=== PATIENT | female | born 1955 | race Asian ===

== ENCOUNTER 2025-10-22 23:26 | Inpatient (IN) | payer MEDICARE, OTHER ==
[~2025-10-22] VITALS: Ht 157.5 cm; Wt 91.0 kg
[2025-10-22 23:56] LABS: Hematocrit 37.2 % (36.0-46.0); Hemoglobin 12.6 g/dL (12.2-16.2); Mean Corpuscular Hemoglobin 33.2 pg (28.0-32.0); Mean Corpuscular Volume 98.0 fL (80.0-100.0); Nucleated Red Blood Cells % 0.0 %
[2025-10-23] VITALS (7 sets, daily range): BP systolic 149–162; BP diastolic 61–77; PULSE 59–71; RESP 17–20; TEMP 97.2–98.9; O2SAT 93–100
[2025-10-23 00:15] LABS: Alanine Aminotransferase 27 U/L (7-40); Albumin 4.2 g/dL (3.2-4.8); Anion Gap 10 (5-15); BUN/Creatinine Ratio 4.4 (10.0-20.0); Bilirubin, Total 0.3 mg/dL (0.2-1.0); Blood Urea Nitrogen 20 mg/dL (9-23); Calcium 9.6 mg/dL (8.7-10.4); Potassium 4.1 mmol/L (3.5-5.1)
[2025-10-23 00:19] LABS: Alkaline Phosphatase 150 U/L (46-116); Carbon Dioxide 32 mmol/L (20-31); Chloride 90 mmol/L (98-107); Glucose 191 mg/dL (74-106); Sodium 132 mmol/L (136-145); Total Protein 8.5 g/dL (5.7-8.2)
--- NOTE | 2025-10-23 00:37 | DVH ---
CHEST RADIOGRAPH Indication: GEN WEAK Technique: Single frontal view of the chest was obtained COMPARISON: None FINDINGS: Lines and Tubes: None Lungs: Clear Pleura: No effusion. No pneumothorax. Cardiomediastinal contours: Cardiomegaly. Bones: Unremarkable IMPRESSION: 1. Cardiomegaly.
--- NOTE | 2025-10-23 01:19 | ED.PDOC ---
History of Present Illness HPI Comments 70-year-old female brought in by EMS. Patient was complaining of generalized weakness which started today. Got worse after having dialysis. Patient states they took 2-3 L fluid off of her after dialysis. States she gets dialysis Tuesdays and Saturdays. Patient states he has been having some mild congestion and cough over the last few days. No fever. Nothing makes it better, nothing makes it worse. Patient denies any chest pain. Chief Complaint: General Weakness Time Seen by MD: 23:35 Reviewed Notes: Nurses Notes Information Source: Patient Mode of Arrival: EMS Past Medical History PAST MEDICAL HISTORY: Denies Surgical History: Denies all surgeries ACUTE CARE PHYSICIAN History: No Pertinent ACUTE CARE PHYSICIAN History Constitutional: reports: fatigue, weakness; denies: chills, diaphoresis, fever, malaise, sweats, others EENTM: denies: blurred vision, double vision, ear bleeding, ear discharge, ear drainage, ear pain, ear ringing, eye pain, eye redness, hearing loss, mouth pain, mouth swelling, nasal discharge, nose bleeding, nose congestion, nose pain, photophobia, tearing, throat pain, throat swelling, voice changes, others Respiratory: reports: cough; denies: hemoptysis, orthopnea, SOB at rest, shortness of breath, SOB with excertion, stridor, wheezing, others Cardiovascular: denies: chest pain, dizzy spells, diaphoresis, Dyspnea on exertion, edema, irregular heart beat, left arm pain, lightheadedness, palpitations, PND, syncope, others Gastrointestinal: denies: abdomen distended, abdominal pain, blood streaked bowels, constipated, diarrhea, dysphagia, difficulty swallowing, hematemesis, melena, nausea, poor appetite, poor fluid intake, rectal bleeding, rectal pain, vomiting, others Genitourinary: denies: abnormal vagina bleeding, burning, dyspareunia, dysuria, flank pain, frequency, hematuria, incontinence, pain, , vagina discharge, urgency, others Neurological: denies: dizziness, fainting, headache, left sided numbness, left sided weakness, numbness, paresthesia, pre-existing deficit, right sided numbness, right sided weakness, seizure, speech problems, tingling, tremors, weakness, others Musculoskeletal: denies: back pain, gout, joint pain, joint swelling, muscle pain, muscle stiffness, neck pain, others Integumetry: denies: bruises, change in color, change in hair/nails, dryness, laceration, lesions, lumps, rash, wounds, others Allergic/Immunocompromised: denies: Difficulty Healing, Frequent Infections, Hives, Itching, others Hematologic/Lymphatic: denies: anemia, blood clots, easy bleeding, easy bruising, swollen glands, others Physical Exam General Appearance: No Apparent Distress, Normal HEENT: Normal ENT Inspection, Pharynx Normal, TMs Normal Neck: Full Range of Motion, Non-Tender, Normal, Normal Inspection Respiratory: Chest Non-Tender, Lungs Clear, No Accessory Muscle Use, No Respiratory Distress, Normal Breath Sounds Cardiovascular: No Edema, No JVD, No Murmur, No Gallop, Normal Peripheral Pulses, Regular Rate/Rhythm Breast Exam: Deferred Gastrointestinal: No Organomegaly, Non Tender, No Pulsatile Mass, Normal Bowel Sounds, Soft Genitalia: Deferred Pelvic: Deferred Rectal: Deferred Extremities: No calf tenderness, Normal capillary refill, Normal inspection, Normal range of motion, Non-tender, No pedal edema Musculoskeletal : Apperance: Normal Neurologic: Alert, belly dancer II-XII nml as Tested, No Motor Deficits, Normal Affect, Normal Mood, No Sensory Deficits Cerebellar Function: Normal Reflexes: Normal Skin: Dry, Normal Color, Warm Lymphatic: No Adenopathy Was a procedure done? Was a procedure done?: No Differential Dx Considerations may include: Pneumonia, sepsis, dehydration, electrolyte imbalance, X-Ray, Labs, Meds, VS Vital Signs Date Time Temp Pulse Resp B/P (MAP) Pulse Ox O2 Delivery O2 Flow Rate FiO2 10/23/25 00:17 98.6 59 18 142/48 (79) 97 98.6 10/23/25 00:17 59 97 Room Air* 0 21 10/22/25 23:43 98.8 62 16 179/73 96 98.8 Lab Test 10/23/25 00:53 10/22/25 23:46 Range/Units Troponin I High Sensitivity Pending 43 *H </=34 ng/L White Blood Count 6.3 4.4-10.8 10^3/uL Red Blood Count 3.80 L 4.0-5.20 10^6/uL Hemoglobin 12.6 12.2-16.2 g/dL Hematocrit 37.2 36.0-46.0 % Mean Corpuscular Volume 98.0 80.0-100.0 fL Mean Corpuscular Hemoglobin 33.2 H 28.0-32.0 pg Mean Corpuscular Hemoglobin Concent 33.9 32.0-36.0 g/dL Red Cell Distribution Width 14.1 11.8-14.3 % Platelet Count 318 140-450 10^3/uL Mean Platelet Volume 7.1 6.9-10.8 fL Neutrophils (%) (Auto) 62.2 37.0-80.0 % Lymphocytes (%) (Auto) 21.7 10.0-50.0 % Monocytes (%) (Auto) 10.7 0.0-12.0 % Eosinophils (%) (Auto) 4.4 0.0-7.0 % Basophils (%) (Auto) 1.0 0.0-2.0 % Neutrophils # (Auto) 3.9 1.6-8.6 10 ^3/uL Lymphocytes # (Auto) 1.4 0.4-5.4 10 ^3/uL Monocytes # (Auto) 0.7 0-1.3 10 ^3/uL Eosinophils # (Auto) 0.3 0-0.8 10 ^3/uL Basophils # (Auto) 0.1 0-0.2 10 ^3/uL Nucleated Red Blood Cells 0.0 % Sodium Level 132 L 136-145 mmol/L Potassium Level 4.1 3.5-5.1 mmol/L Chloride Level 90 L 98-107 mmol/L Carbon Dioxide Level 32 H 20-31 mmol/L Anion Gap 10 5-15 Blood Urea Nitrogen 20 9-23 mg/dL Creatinine 4.52 H 0.550-1.02 mg/dL Glomerular Filtration Rate Calc 10 >90 mL/min BUN/Creatinine Ratio 4.4 L 10.0-20.0 Serum Glucose 191 H 74-106 mg/dL Lactic Acid Level 1.7 0.4-2.0 mmol/L Calcium Level 9.6 8.7-10.4 mg/dL Total Bilirubin 0.3 0.2-1.0 mg/dL Aspartate Amino Transferase (AST) 25 13-40 U/L Alanine Aminotransferase (ALT) 27 7-40 U/L Alkaline Phosphatase 150 H 46-116 U/L Ammonia 21 11-32 umol/L Total Protein 8.5 H 5.7-8.2 g/dL Albumin 4.2 3.2-4.8 g/dL X-Ray, Labs, Meds, VS Comment Patient has a elevated troponin, hyponatremia Patient be admitted for metabolic encephalopathy, generalized weakness, acute coronary syndrome, Patient hemodynamically stable Recommend cardiology consult in the morning Previous records reviewed by this provider Time of 1ST Reevaluation: 01:17 Reevaluation 1ST: Unchanged Patient Education/Counseling: Diagnosis, Treatment Family Education/Counseling: Diagnosis, Treatment SEPSIS Sepsis Screen Date sepsis recognized/suspect: Oct 22, 2025 Time Sepsis recognized/suspect: 2339 Recent Procedure: No On Antibiotic Therapy: No Respiratory Rate >20: No Heart Rate >90: No Temp<36 C (96.8 F) or >38.3 C: No SBP <90 or MAP <65 mmHG: No New Acute Mental Status Change: No Is the patient on CPAP, BIPAP,: No Physician Orders Chest Xray 1 View (10/22/25 23:38) Troponin-I Hs (10/23/25 00:38) Troponin-I Hs (10/23/25 02:38) Vital Signs Date Time Temp Pulse Resp B/P (MAP) Pulse Ox O2 Delivery O2 Flow Rate FiO2 10/23/25 00:17 98.6 59 18 142/48 (79) 97 98.6 10/23/25 00:17 59 97 Room Air* 0 21 10/22/25 23:43 98.8 62 16 179/73 96 98.8 Laboratory Tests Test 10/22/25 23:46 Lactic Acid Level 1.7 mmol/L (0.4-2.0) White Blood Count 6.3 10^3/uL (4.4-10.8) Departure 1 Departure Time of Disposition: 01:14 Impression: Primary Impression: End stage renal disease Additional Impressions: Elevated troponin ACS (acute coronary syndrome) Metabolic encephalopathy Disposition: ADMITTED INPATIENT Condition: Stable Critical Care Note Critical Care Time?: No Stability Stability form required: No Heart Score Heart Score: Heart Score Response (Comments) Value History N/A 0 EKG N/A 0 Age N/A 0 Risk Factors N/A 0 Troponin N/A 0 Total 0 RAJAN WALDROP Oct 23, 2025 01:19
[2025-10-23] MEDS ORDERED: ONDANSETRON HCL 4 MG/2 ML VIAL IV PRN (02:15)
[2025-10-23] MEDS ORDERED: HYDROcodone-ACET 5/325MG TAB PO PRN (02:15)
[2025-10-23] MEDS ORDERED: SODIUM CHLORIDE 0.9% 1,000 ML IV SCH (02:15)
[2025-10-23] MEDS ORDERED: ACETAMINOPHEN 325 MG TAB PO PRN (02:15)
[2025-10-23] MEDS ORDERED: DEXTROSE (50%) 50ML SYRG IV PRN (02:15)
[2025-10-23] MEDS ORDERED: DOCUSATE SOD 100 MG CAP PO PRN (02:15)
--- NOTE | 2025-10-23 02:22 | DVHHP2 ---
History of Present Illness Reason for Visit: End stage renal disease History of Present Illness The patient is a 70-year-old female with past medical history of diabetes mellitus, vascular disease, blood clot not on any anticoagulant, diabetes mellitus, and end-stage renal disease on hemodialysis, T--SAT presented to [facility] ED for evaluation of generalized weakness associated with shortness of breaths. Patient's son reports that patient had dialysis session today with 2-3 L of fluid output, symptoms gets worse after dialysis prompting this visit. Patient states he has been having some mild congestion and cough over the last few days, pending appointment with broke beater on November 06, 2025. Patient was seen and evaluated in the ED, laboratory data shows WBC 6.3, platelets 318, sodium 132, potassium 4.1, BUN 20, creatinine 4.52, GFR 10, glucose 191, hemoglobin A1c 6.4, calcium 9.6, ammonia 21, lactic acid 1.7, troponin 46, blood pressure 142/58, heart rate 59, temperature 98.6 F, O2 saturation 97% on oxygen. Chest x-ray revealing cardiomegaly. Please see medica tion orders section in the computer. On my assessment, at bedside, patient denied chest pain, no headache, dizziness, diaphoresis, currently on oxygen, no abdominal pain, diarrhea, nausea, vomiting, fever, no chills. Patient was admitted for further evaluation and medical management. Past Medical History Blood clot, Vascular disease, ESRD, DM, Hypertension Past Surgical History Dialysis catheter Family History Reviewed, noncontributory to the management of this case. Past Social History The patient lives at home, denies smoking, alcohol or illicit drugs abuse. Review of Systems Constitutional: Yes: Weakness, Other (Fatigue); No: Fever, Chills, Sweats, Malaise Eyes: No: Pain, Vision change, Conjunctivae inflammation, Eyelid inflammation, Other, Redness ENT: No: Ear pain, Ear discharge, Nose pain, Nose discharge, Nose congestion, Mouth pain, Mouth swelling, Throat pain, Throat swelling, Other Respiratory: Cough, Shortness of breath; No: Dry, SOB with excertion, Wheezing, Hemoptysis, Pleuritic Pain, Sputum, Wheezing, Other Cardiovascular: No: Chest Pain, Palpitations, Orthopnea, Paroxysmal Noc. Dyspnea, Edema, Lt Headedness, Other Gastrointestinal: No: Nausea, Vomiting, Abdominal Pain, Diarrhea, Constipation, Melena, Hematochezia, Other Genitourinary: No Dysuria, No Frequency, No Incontinence, No Hematuria, No Retention, No Other Musculoskeletal: No: other, neck pain, shoulder pain, arm pain, back pain, hand pain, leg pain, foot pain Skin: No: Rash, Lesions, Jaundice, Bruising, Other Neurological: No: Weakness, Numbness, Incoordination, Change in speech, Confusion, Seizures, Other Allergies: Coded Allergies: NO KNOWN ALLERGIES (Unverified , 10/23/25) Medications Current Medications Medications Dose Ordered Sig/Michelle Route Start Time Stop Time Status Last Admin Dose Admin Multivit/Ca Carb/ B Cmplx/FA/Prenat 1 tab DAILY PO 10/23/25 10:00 UNV Diagnostic Test (Pha) 1 strip ACHS 10/23/25 07:00 UNV Insulin Human Regular HS SC 10/23/25 22:00 UNV Insulin Human Regular AC SC 10/23/25 07:00 UNV Dextrose 50 ml UD PRN IV 10/23/25 02:15 UNV Sodium Chloride 1,000 ml @ 60 mls/hr [id number] IV 10/23/25 02:15 UNV Acetaminophen/ Hydrocodone Bitart 1 tab Q4HP PRN PO 10/23/25 02:15 UNV Ondansetron HCl 4 mg Q4HP PRN IV 10/23/25 02:15 UNV Docusate Sodium 100 mg BIDPRN PRN PO 10/23/25 02:15 UNV Acetaminophen 650 mg Q6HP PRN PO 10/23/25 02:15 UNV Aspirin 81 mg DAILY PO 10/23/25 10:00 UNV Exam Vital Signs Vital Signs Date Time Temp Pulse Resp B/P (MAP) Pulse Ox O2 Delivery O2 Flow Rate FiO2 10/23/25 02:13 65 13 141/39 (73) 99 10/23/25 00:17 98.6 98.6 10/23/25 00:17 Room Air* 0 21 General Appearance: Alert, Oriented X3, Cooperative, No acute distress HEENT: Atraumatic, PERRLA, EOMI, Mucous membr. moist/pink Respiratory: Normal air movement Cardiovascular: Regular rate, Normal S1, Normal S2, No murmurs Abdominal: Normal bowel sounds, Soft, No tenderness, No hepatospenomegaly, No masses Extremities: No clubbing, No cyanosis, No edema, Normal pulses, No tenderness/swelling Skin: No rashes, No significant lesion Neuro: Normal speech, Normal tone, Sensation intact, Cranial nerves 3-12 NL, Reflexes 2+, Other (Generalized weakness) Psych/Mental Status: Mental status NL, Mood NL Labs/Xrays Labs Test 10/23/25 00:53 10/22/25 23:46 Range/Units Troponin I High Sensitivity 46 *H </=34 ng/L White Blood Count 6.3 4.4-10.8 10^3/uL Red Blood Count 3.80 L 4.0-5.20 10^6/uL Hemoglobin 12.6 12.2-16.2 g/dL Hematocrit 37.2 36.0-46.0 % Mean Corpuscular Volume 98.0 80.0-100.0 fL Mean Corpuscular Hemoglobin 33.2 H 28.0-32.0 pg Mean Corpuscular Hemoglobin Concent 33.9 32.0-36.0 g/dL Red Cell Distribution Width 14.1 11.8-14.3 % Platelet Count 318 140-450 10^3/uL Mean Platelet Volume 7.1 6.9-10.8 fL Neutrophils (%) (Auto) 62.2 37.0-80.0 % Lymphocytes (%) (Auto) 21.7 10.0-50.0 % Monocytes (%) (Auto) 10.7 0.0-12.0 % Eosinophils (%) (Auto) 4.4 0.0-7.0 % Basophils (%) (Auto) 1.0 0.0-2.0 % Neutrophils # (Auto) 3.9 1.6-8.6 10 ^3/uL Lymphocytes # (Auto) 1.4 0.4-5.4 10 ^3/uL Monocytes # (Auto) 0.7 0-1.3 10 ^3/uL Eosinophils # (Auto) 0.3 0-0.8 10 ^3/uL Basophils # (Auto) 0.1 0-0.2 10 ^3/uL Nucleated Red Blood Cells 0.0 % Sodium Level 132 L 136-145 mmol/L Potassium Level 4.1 3.5-5.1 mmol/L Chloride Level 90 L 98-107 mmol/L Carbon Dioxide Level 32 H 20-31 mmol/L Anion Gap 10 5-15 Blood Urea Nitrogen 20 9-23 mg/dL Creatinine 4.52 H 0.550-1.02 mg/dL Glomerular Filtration Rate Calc 10 >90 mL/min BUN/Creatinine Ratio 4.4 L 10.0-20.0 Serum Glucose 191 H 74-106 mg/dL Lactic Acid Level 1.7 0.4-2.0 mmol/L Calcium Level 9.6 8.7-10.4 mg/dL Total Bilirubin 0.3 0.2-1.0 mg/dL Aspartate Amino Transferase (AST) 25 13-40 U/L Alanine Aminotransferase (ALT) 27 7-40 U/L Alkaline Phosphatase 150 H 46-116 U/L Ammonia 21 11-32 umol/L Total Protein 8.5 H 5.7-8.2 g/dL Albumin 4.2 3.2-4.8 g/dL PATIENT: OPAL HOOVER ACCT: [id number] UNIT: [id number] : 1955 LOC: ER ROOM / BED: / AGE / SEX: 70 / F ADM STATUS: REG ER SERVICE 2338 ORDERING PHYSICIAN: RAJAN WALDROP PROCEDURE(s): CXR1 - CHEST XRAY 1 VIEW REASON: GEN WEAK ORDER NUMBER(s): [id number], ACCESSION NUMBER(s): [id number] CHEST RADIOGRAPH Indication: GEN WHALEY Technique: Single frontal view of the chest was obtained COMPARISON: None FINDINGS: Lines and Tubes: None Lungs: Clear Pleura: No effusion. No pneumothorax. Cardiomediastinal contours: Cardiomegaly. Bones: Unremarkable IMPRESSION: 1. Cardiomegaly. SEPSIS Sepsis Screen Date sepsis recognized/suspect: Oct 23, 2025 Time Sepsis recognized/suspect: 219 Recent Procedure: No On Antibiotic Therapy: No Respiratory Rate >20: No Heart Rate >90: No Temp<36 C (96.8 F) or >38.3 C: No SBP <90 or MAP <65 mmHG: No New Acute Mental Status Change: No Is the patient on CPAP, BIPAP,: No Physician Orders Chest Xray 1 View (10/22/25 23:38) Troponin-I Hs (10/23/25 02:38) Electrocardigram (10/23/25 01:19) Complete Blood Count (10/23/25 04:00) Comprehensive Metabolic Panel (10/23/25 04:00) *[facility] (10/23/25 02:06) B-Complex W/ C & Folic Tablet (Nephro-Vi (10/23/25 10:00) Hemoglobin A1c (10/23/25 02:06) Glucose Blood (Accu-Chek Comfort Curve T (10/23/25 07:00) Insulin R (Human) (Insulin R) (10/23/25 22:00) Insulin R (Human) (Insulin R) (10/23/25 07:00) Dextrose 50% Syringe (10/23/25 02:15) Allergies (10/23/25 02:06) Code Status (10/23/25 02:06) Sodium Chloride 0.9% (10/23/25 02:15) Oxygen Per Hour (10/23/25 02:06) Hydrocodone-Acet 5/325mg Tab (Thomas (10/23/25 02:15) Ondansetron Hcl (Zofran) (10/23/25 02:15) Docusate Sodium Capsule (Colace Capsule) (10/23/25 02:15) Fall Risk Precautions In Place QSHIFT (10/23/25 02:06) Complete Blood Count (10/24/25 04:00) Comprehensive Metabolic Panel (10/24/25 04:00) Cardiac Diet-2gna,Lofat,Lochol (10/23/25 Breakfast) Condition: Serious (10/23/25 02:06) Acetaminophen Tablet (Tylenol Tablet) (10/23/25 02:15) Maintain Bed Rest (10/23/25 02:06) Sequential Compression Device (10/23/25 ) Aspirin Chewable Tablet (10/23/25 10:00) Aspirin Chewable Tablet (10/23/25 02:15) Troponin-I Hs (10/23/25 03:12) Troponin-I Hs (10/23/25 05:12) Vital Signs Date Time Temp Pulse Resp B/P (MAP) Pulse Ox O2 Delivery O2 Flow Rate FiO2 10/23/25 02:13 65 13 141/39 (73) 99 10/23/25 00:17 98.6 59 18 142/48 (79) 97 98.6 10/23/25 00:17 59 97 Room Air* 0 21 10/22/25 23:58 63 10/22/25 23:43 98.8 62 16 179/73 96 98.8 Laboratory Tests Test 10/22/25 23:46 Lactic Acid Level 1.7 mmol/L (0.4-2.0) White Blood Count 6.3 10^3/uL (4.4-10.8) Assessment/Plan Assessment/Plan End stage renal disease Elevated troponin ACS (acute coronary syndrome) Metabolic encephalopathy Generalized weakness Plan 1. Admit to telemetry unit 2. Breathing treatment 3. Pain control management 4. Management of fluids and electrolytes 5. Consultation for Nephrology/hospitalist 6. Diagnostic tests chest x-ray 7. DVT prophylaxis-on aspirin 8. Repeat labs CBC, CMP in a.m. 9. Continue with current medical management 10. Treatment plan discussed with patient/son and RN. Patient/son verbalized understanding. Plan discussed with: Patient, Other (RN) My Orders Orders - MANJEET GIRON DNP Procedure Category Date Status Time Complete Blood Count LAB 10/23/25 Logged 04:00 Comprehensive LAB 10/23/25 Logged Metabolic Panel 04:00 *[facility] CONS 10/23/25 Transmitted -[place] 02:06 B-Complex W/ C & PHA 10/23/25 Logged Folic Tablet 10:00 Hemoglobin A1c LAB 10/23/25 In Process 02:06 Glucose Blood PHA 10/23/25 Logged (Accu-Chek Comfort 07:00 Insulin R (Human) PHA 10/23/25 Logged (Insulin R) 22:00 Insulin R (Human) PHA 10/23/25 Logged (Insulin R) 07:00 Dextrose 50% Syringe PHA 10/23/25 Logged 02:15 Allergies JACQUELINE 10/23/25 In Process 02:06 Code Status CODE 10/23/25 Transmitted 02:06 Sodium Chloride 0.9% PHA 10/23/25 Logged 02:15 Oxygen Per Hour RT 10/23/25 Transmitted 02:06 Hydrocodone-Acet PHA 10/23/25 Logged 5/325mg Tab (Thomas 02:15 Ondansetron Hcl PHA 10/23/25 Logged (Zofran) 02:15 Docusate Sodium PHA 10/23/25 Logged Capsule (Colace 02:15 Fall Risk Precautions JACQUELINE 10/23/[address] 02:06 Complete Blood Count LAB 10/24/25 Verified 04:00 Comprehensive LAB 10/24/25 Verified Metabolic Panel 04:00 Cardiac DIET 10/23/25 Transmitted Diet-2gna,Lofat,Lochol Breakfast Condition: Serious JACQUELINE 10/23/25 In Process 02:06 Acetaminophen Tablet [facility] 10/23/25 Logged (Tylenol Tablet) 02:15 Maintain Bed Rest JACQUELINE 10/23/25 In Process 02:06 Sequential JACQUELINE 10/23/25 In Process Compression Device Aspirin Chewable PHA 10/23/25 Logged Tablet 10:00 Aspirin Chewable PHA 10/23/25 Logged Tablet 02:15 Troponin-I Hs LAB 10/23/25 Logged 03:12 Troponin-I Hs LAB 10/23/25 Logged 05:12 Problem List: (1) End stage renal disease (2) Elevated troponin (3) ACS (acute coronary syndrome) (4) Metabolic encephalopathy (5) Generalized weakness Date of Service: Oct 23, 2025 Billing Provider: MANJEET GIRON DNP Common Visit Codes: [id number] INP/OBS CARE (HIGH) MANJEET GIRON DNP Oct 23, 2025 02:22
[2025-10-23] MEDS ORDERED: MORPHINE SULFATE INJ 2 MG/ml SYRG IV PRN (02:30)
[2025-10-23] MEDS ORDERED: NITROGLYCERIN 0.4 MG SL TAB SL PRN (02:30)
[2025-10-23 04:08] LABS: Alanine Aminotransferase 19 U/L (7-40); Alkaline Phosphatase 112 U/L (46-116); Anion Gap 10 (5-15); BUN/Creatinine Ratio 4.0 (10.0-20.0); Bilirubin, Total 0.4 mg/dL (0.2-1.0); Blood Urea Nitrogen 16 mg/dL (9-23); Carbon Dioxide 27 mmol/L (20-31); Chloride 99 mmol/L (98-107); Potassium 3.5 mmol/L (3.5-5.1); Total Protein 6.4 g/dL (5.7-8.2)
[2025-10-23 04:10] LABS: Albumin 3.1 g/dL (3.2-4.8); Calcium 7.8 mg/dL (8.7-10.4); Glucose 113 mg/dL (74-106); Sodium 136 mmol/L (136-145)
[2025-10-23] MEDS: InsuLIN REG 1unit/0.01ml Soln (100units/ml) SC SCH ×2 (06:37→21:58)
[2025-10-23] MEDS: ACCU-CHEK COMFORT CURVE STRIP VI SCH (06:37)
[2025-10-23 06:39] LABS: Hematocrit 33.0 % (36.0-46.0); Hemoglobin 11.4 g/dL (12.2-16.2); Mean Corpuscular Hemoglobin 33.7 pg (28.0-32.0); Mean Corpuscular Volume 97.5 fL (80.0-100.0); Nucleated Red Blood Cells % 0.0 %
--- NOTE | 2025-10-23 10:09 | ECG ---
[facility] Test Date: 2025-10-22 Test Time: 23:58:47 Pat Name: OPAL HOOVER Department: ED Room: 0248T B Gender: F Dental Office Receptionist: HAYLEE : 1955 Requested By: RAJAN HARDEN* Order Number: [id number] Reading MD: Jarek Lowry Measurements Intervals [place] Rate: 63 P: 38 HI: 325 QRS: 81 QRSD: 90 T: 55 QT: 421 QTc: 431 Interpretive Statements Sinus rhythm, intermittant A-V block, complete Prolonged HI interval Anterior infarct, old Electronically Signed On 10-29-2025 18:52:47 PST by Jarek Lowry Please click the below link to view image of tracing.
[2025-10-23] MEDS: B-COMPLEX W/ C & FOLIC ACID(NEPHROVITE TAB) PO SCH (11:32)
--- NOTE | 2025-10-23 12:43 | DVHPN2 ---
Reviewed: Care Plan, H&P, Labs, Medications, Previous Orders, Radiology Changes from previous H/P or p: No Changes Eyes: No Pain, No Vision change, No Conjunctivae inflammation, No Eyelid inflammation, No Other, No Redness ENT: No Ear pain, No Ear discharge, No Nose pain, No Nose discharge, No Nose congestion, No Mouth pain, No Mouth swelling, No Throat pain, No Throat swelling, No Other Cardiovascular: No Chest Pain, No Palpitations, No Orthopnea, No Paroxysmal Noc. Dyspnea, No Edema, No Lt Headedness, No Other Respiratory: Cough, Shortness of breath Gastrointestinal: No Nausea, No Vomiting, No Abdominal Pain, No Diarrhea, No Constipation, No Melena, No Hematochezia, No Other Genitourinary: No Dysuria, No Frequency, No Incontinence, No Hematuria, No Retention, No Other Musculoskeletal: No other, No neck pain, No shoulder pain, No arm pain, No back pain, No hand pain, No leg pain, No foot pain Skin: No Rash, No Lesions, No Jaundice, No Bruising, No Other Objective Vitals Vital Signs Date Time Temp Pulse Resp B/P (MAP) Pulse Ox O2 Delivery O2 Flow Rate FiO2 10/23/25 05:01 97.2 71 18 150/61 (90) 100 97.2 10/23/25 05:01 Nasal Cannula* 2 28 Medications Current Medications Medications Dose Ordered Sig/Michelle Route Start Time Stop Time Status Last Admin Dose Admin Multivit/Ca Carb/ B Cmplx/FA/Prenat 1 tab DAILY PO 10/23/25 10:00 10/23/25 11:32 1 TAB Diagnostic Test (Pha) 1 strip ACHS 10/23/25 07:00 10/23/25 11:30 1 STRIP Insulin Human Regular HS SC 10/23/25 22:00 Insulin Human Regular AC SC 10/23/25 07:00 Dextrose 50 ml UD PRN IV 10/23/25 02:15 Sodium Chloride 1,000 ml @ 60 mls/hr [id number] IV 10/23/25 02:15 Cancel Acetaminophen/ Hydrocodone Bitart 1 tab Q4HP PRN PO 10/23/25 02:15 Ondansetron HCl 4 mg Q4HP PRN IV 10/23/25 02:15 Docusate Sodium 100 mg BIDPRN PRN PO 10/23/25 02:15 Acetaminophen 650 mg Q6HP PRN PO 10/23/25 02:15 Aspirin 81 mg DAILY PO 10/23/25 10:00 10/23/25 11:32 81 MG Nitroglycerin 0.4 mg Q5MINP PRN SL 10/23/25 02:30 Morphine Sulfate 2 mg Q30M PRN IV 10/23/25 02:30 Laboratory Results Laboratory Tests 10/23/25 03:00 10/23/25 05:58 Chemistry Test 10/22/25 23:46 10/23/25 03:00 Albumin 4.2 g/dL (3.2-4.8) 3.1 g/dL (3.2-4.8) L Calcium Level 9.6 mg/dL (8.7-10.4) 7.8 mg/dL (8.7-10.4) L Total Protein 8.5 g/dL (5.7-8.2) H 6.4 g/dL (5.7-8.2) Coagulation Test 10/23/25 05:58 D-Dimer, Quantitative 0.76 mg/L FEU (0.0-0.49) H LFT Test 10/22/25 23:46 10/23/25 03:00 Alanine Aminotransferase (ALT) 27 U/L (7-40) 19 U/L (7-40) Alkaline Phosphatase 150 U/L (46-116) H 112 U/L (46-116) Aspartate Amino Transferase (AST) 25 U/L (13-40) 19 U/L (13-40) Total Bilirubin 0.3 mg/dL (0.2-1.0) 0.4 mg/dL (0.2-1.0) HgA1c, TSH Test 10/22/25 23:46 Hemoglobin A1c 6.4 % A1C (<5.7) H Labs and/or images reviewed: Labs reviewed by me, Image(s) reviewed by me Assessment/Plan Assessment/Plan End stage renal disease hemodialysis, consult for library technology instructor Slightly Elevated troponin probably secondary to ESRD Slightly elevated D-dimer 0.76: Venous ultrasound ruled out DVT Acute generalized weakness Metabolic encephalopathy Diabetes Hypertension Time spent 45 minutes Advanced care planning time 20 minutes Plan discussed with: Patient Date of Service: Oct 23, 2025 Billing Provider: SARAHY STEIN MD Common Visit Codes: [id number] INP/OBS CARE(HIGH) SARAHY STEIN MD Oct 23, 2025 12:43
--- NOTE | 2025-10-23 14:32 | DVH ---
Bilateral lower extremity venous duplex Clinical History: Rule out DVT Comparison: None Technique: Duplex Doppler evaluation of the deep venous systems of both lower extremities from the common femoral veins to the popliteal veins including color Doppler and spectral/pulsed waveform analysis was performed. Findings: RIGHT SIDE: The common femoral vein demonstrates appropriate compressibility and waveform variability. There is compressibility/patency of the great saphenous vein at the proximal thigh. The femoral vein demonstrates appropriate compressibility and waveform variability. The deep femoral vein demonstrates appropriate compressibility and waveform variability. The popliteal vein demonstrates appropriate compressibility and waveform variability. There is normal compressibility at the tibioperoneal trunk. LEFT SIDE: The common femoral vein demonstrates appropriate compressibility and waveform variability. There is compressibility/patency of the great saphenous vein at the proximal thigh. The femoral vein demonstrates appropriate compressibility and waveform variability. The deep femoral vein demonstrates appropriate compressibility and waveform variability. The popliteal vein demonstrates appropriate compressibility and waveform variability. There is normal compressibility at the tibioperoneal trunk. Impression: 1. No right or left femoropopliteal venous thrombosis.
[2025-10-23] MEDS ORDERED: LISI40TA16 PO (15:28)
[2025-10-23] MEDS ORDERED: DULA4.5I SC (15:28)
[2025-10-23] MEDS ORDERED: GABA300T4 PO (15:28)
[2025-10-23] MEDS ORDERED: INSLANTI SC (15:28)
[2025-10-23] MEDS ORDERED: CILO100T3 PO (15:28)
[2025-10-23] MEDS ORDERED: DOCU-94 PO (15:28)
[2025-10-23] MEDS ORDERED: ACET-1803 PO (15:28)
[2025-10-23] MEDS ORDERED: CETI1SYP5 PO (15:28)
[2025-10-23] MEDS ORDERED: LEVO50CA3 PO (15:28)
[2025-10-23] MEDS ORDERED: ASPI1TAB20 PO (15:28)
[2025-10-23] MEDS ORDERED: CALC10TA PO (15:28)
[2025-10-23] MEDS ORDERED: AML5T PO (15:28)
[2025-10-23] MEDS ORDERED: POLY335015 PO (15:28)
[2025-10-23] MEDS ORDERED: ATOR40TA52 PO (15:28)
[2025-10-23] MEDS ORDERED: CARB1DRO22 OP (15:32)
[2025-10-23] MEDS ORDERED: TIRZ7.5I SC (15:32)
[2025-10-23] MEDS ORDERED: NITR0.4O2 PR (15:32)
[2025-10-23] MEDS ORDERED: B-CO1TAB44 PO (15:32)
[2025-10-23] MEDS ORDERED: PANT1INJ3 PO (15:32)
[2025-10-23] MEDS ORDERED: SEVE800T8 PO (15:32)
--- NOTE | 2025-10-23 21:30 | ECG ---
[facility] Test Date: 2025-10-23 Test Time: 21:27:22 Pat Name: OPAL HOOVER Department: Room: 0248T B Gender: F Parachute Packer: TOREY : 1955 Requested By: SHAY PISANO Order Number: [id number] Reading MD: Jarek Lowry Measurements Intervals [place] Rate: 67 P: 0 OR: 0 QRS: 106 QRSD: 89 T: 69 QT: 440 QTc: 465 Interpretive Statements Sinus rhythm Second deg AVB, Mobitz I (Wenckebach) Anterolateral infarct, old Electronically Signed On 10-29-2025 18:20:19 PST by Jarek Lowry Please click the below link to view image of tracing.
[2025-10-24 01:00] VITALS: BP 162/80; PULSE 69; RESP 18; TEMP 98.9; O2SAT 92
--- NOTE | 2025-10-24 02:56 | DVHINCON2 ---
CONSULTING PHYSICIAN: Dr. Sanches. REASON FOR CONSULTATION: Management of dialysis. HISTORY OF PRESENT ILLNESS: The patient is a 70-year-old lady from [place] who is a dialysis patient who recently moved to this area. She has been on dialysis for about 10 years and end-stage renal disease due to diabetic nephropathy. She was brought to the hospital by family members, complaining of uncontrolled hypertension and shortness of breath. The patient actually had her dialysis at the clinic yesterday, they removed 3 liters of fluid. As per report from the emergency room, her son brought her to the ER, stating that she felt more shortness of breath after dialysis. She states that for a few days, she has been having some congestion, cough, but no fever. In the emergency room, she was found to have a saturation of 97% on 2 L oxygen. They decided to admit her to the hospital for further observation. I am being consulted to continue her dialysis treatment. REVIEW OF SYSTEMS: Unremarkable. PAST MEDICAL HISTORY: Significant for longstanding hypertension, diabetes, obesity, anemia, hyperparathyroidism. She also has a history of congestive heart failure, deep vein thrombosis and peripheral vascular disease. SOCIAL HISTORY: Denies smoking or drinking alcohol. FAMILY HISTORY: Negative for chronic conditions other than diabetes. MEDICATIONS IN THE HOSPITAL: Include insulin, aspirin, morphine, nitroglycerin, acetaminophen. PHYSICAL EXAMINATION: VITAL SIGNS: Blood pressure is 150/60. Heart rate is 71. Respirations 18. Temperature 97.2. GENERAL: The patient is an elderly female who appears to be chronically ill, in no acute distress. She is alert and oriented x 3. HEENT: Exam is unremarkable. Oral mucosa is mildly pale and dry. NECK: There is no jugular venous distention. LUNGS: The lungs show diminished air entry at the bases, but no crackles or wheezing. CARDIOVASCULAR: Shows regular rate, 1/6 systolic murmur. ABDOMEN: Soft, nontender. No organomegaly. No ascites. EXTREMITIES: Show no clubbing or cyanosis . NEUROLOGIC: Nonfocal. SKIN: Unremarkable. LABORATORY FINDINGS: Hemoglobin is 11.4, white blood cell count is normal at 5.1, sodium 136, potassium 3.5, creatinine 4, bicarbonate 22. IMAGING DATA: Chest x-ray was done earlier today, shows clear lungs. ASSESSMENT AND PLAN: ? End stage renal disease is stable. ? Controlled hypertension. ? Hemoglobin of anemia of renal disease at target range. ? No evidence of congestive heart failure or anemia. The patient has no evidence of fluid overload or pneumonia. Currently, she seems to be stable. I do not see a need to keep her in the hospital. If for whatever reason she stays here, I will arrange for her to have dialysis tomorrow. Thank you for the consultation. MD BARRINGTON Wolfe/KIKI TID: [id number] RECEIPT: [id number]
[2025-10-24 05:00] VITALS: BP 156/73; PULSE 65; RESP 16; TEMP 98.1; O2SAT 100
[2025-10-24] MEDS ORDERED: SODIUM CHL 0.9% 1000 ML BAG XX ONE (07:00)
[2025-10-24 07:56] LABS: Hematocrit 36.5 % (36.0-46.0); Hemoglobin 12.2 g/dL (12.2-16.2); Mean Corpuscular Hemoglobin 33.1 pg (28.0-32.0); Mean Corpuscular Volume 98.9 fL (80.0-100.0); Nucleated Red Blood Cells % 0.0 %
[2025-10-24 08:00] VITALS: PULSE 49; PULSE 52; RESP 19; O2SAT 100
[2025-10-24 09:00] VITALS: BP 166/82; PULSE 49; RESP 19; TEMP 97; O2SAT 100
[2025-10-24 09:05] LABS: Alanine Aminotransferase 29 U/L (7-40); Albumin 3.8 g/dL (3.2-4.8); Anion Gap 13 (5-15); BUN/Creatinine Ratio 5.6 (10.0-20.0); Bilirubin, Total 0.4 mg/dL (0.2-1.0); Calcium 9.0 mg/dL (8.7-10.4); Carbon Dioxide 30 mmol/L (20-31); Potassium 5.0 mmol/L (3.5-5.1); Total Protein 7.7 g/dL (5.7-8.2)
[2025-10-24 09:06] LABS: Alkaline Phosphatase 136 U/L (46-116); Blood Urea Nitrogen 38 mg/dL (9-23); Chloride 90 mmol/L (98-107); Glucose 147 mg/dL (74-106); Sodium 133 mmol/L (136-145)
--- NOTE | 2025-10-24 10:17 | DVHPN2 ---
Reviewed: Care Plan, H&P, Labs, Medications, Previous Orders, Radiology Changes from previous H/P or p: No Changes Eyes: No Pain, No Vision change, No Conjunctivae inflammation, No Eyelid inflammation, No Other, No Redness ENT: No Ear pain, No Ear discharge, No Nose pain, No Nose discharge, No Nose congestion, No Mouth pain, No Mouth swelling, No Throat pain, No Throat swelling, No Other Cardiovascular: No Chest Pain, No Palpitations, No Orthopnea, No Paroxysmal Noc. Dyspnea, No Edema, No Lt Headedness, No Other Respiratory: Cough, Shortness of breath Gastrointestinal: No Nausea, No Vomiting, No Abdominal Pain, No Diarrhea, No Constipation, No Melena, No Hematochezia, No Other Genitourinary: No Dysuria, No Frequency, No Incontinence, No Hematuria, No Retention, No Other Musculoskeletal: No other, No neck pain, No shoulder pain, No arm pain, No back pain, No hand pain, No leg pain, No foot pain Skin: No Rash, No Lesions, No Jaundice, No Bruising, No Other Objective Vitals Vital Signs Date Time Temp Pulse Resp B/P (MAP) Pulse Ox O2 Delivery O2 Flow Rate FiO2 10/24/25 05:00 98.1 65 16 156/73 (100) 100 98.1 10/23/25 20:00 Nasal Cannula* 2 28 Intake/Output Intake and Output 10/24/25 07:00 Intake Total 1075 ml Balance 1075 ml Intake Oral 1075 ml # Voids 1 # Bowel Movements 1 Medications Current Medications Medications Dose Ordered Sig/Michelle Route Start Time Stop Time Status Last Admin Dose Admin Multivit/Ca Carb/ B Cmplx/FA/Prenat 1 tab DAILY PO 10/23/25 10:00 10/23/25 11:32 1 TAB Diagnostic Test (Pha) 1 strip ACHS 10/23/25 07:00 10/24/25 06:51 1 STRIP Insulin Human Regular HS SC 10/23/25 22:00 Insulin Human Regular AC SC 10/23/25 07:00 10/23/25 18:18 2 UNITS Dextrose 50 ml UD PRN IV 10/23/25 02:15 Sodium Chloride 1,000 ml @ 60 mls/hr [id number] IV 10/23/25 02:15 Cancel Acetaminophen/ Hydrocodone Bitart 1 tab Q4HP PRN PO 10/23/25 02:15 Ondansetron HCl 4 mg Q4HP PRN IV 10/23/25 02:15 Docusate Sodium 100 mg BIDPRN PRN PO 10/23/25 02:15 Acetaminophen 650 mg Q6HP PRN PO 10/23/25 02:15 Aspirin 81 mg DAILY PO 10/23/25 10:00 10/23/25 11:32 81 MG Nitroglycerin 0.4 mg Q5MINP PRN SL 10/23/25 02:30 Morphine Sulfate 2 mg Q30M PRN IV 10/23/25 02:30 Amlodipine Besylate 10 mg DAILY PO 10/24/25 10:00 Clonidine HCl 0.1 mg Q4HP PRN PO 10/24/25 00:45 Laboratory Results Laboratory Tests 10/24/25 07:21 Chemistry Test 10/24/25 07:21 Albumin 3.8 g/dL (3.2-4.8) Calcium Level 9.0 mg/dL (8.7-10.4) Total Protein 7.7 g/dL (5.7-8.2) LFT Test 10/24/25 07:21 Alanine Aminotransferase (ALT) 29 U/L (7-40) Alkaline Phosphatase 136 U/L (46-116) H Aspartate Amino Transferase (AST) 23 U/L (13-40) Total Bilirubin 0.4 mg/dL (0.2-1.0) Labs and/or images reviewed: Labs reviewed by me, Image(s) reviewed by me Assessment/Plan Assessment/Plan End stage renal disease hemodialysis, consult for clinical nursing director Dr. Bridgett foster , advised to discharge the patient, has an appointment for dialysis at [facility] 1:00 p.m. on 10/24/2025 Slightly Elevated troponin probably secondary to ESRD Slightly elevated D-dimer 0.76: DVT ruled out Acute generalized weakness Metabolic encephalopathy Diabetes Hypertension Time spent 45 minutes Advanced care planning time 20 minutes Daughter at the bedside is the grouter helper Plan discussed with: Patient My Orders Orders - SARAHY STEIN MD Procedure Category Date Status Time Bilat Lower Dvt US 10/23/25 Resulted 12:41 Complete Blood Count LAB 10/25/25 Verified 05:00 Complete Blood Count LAB 10/26/25 Verified 05:00 Comprehensive LAB 10/25/25 Verified Metabolic Panel 05:00 Comprehensive LAB 10/26/25 Verified Metabolic Panel 05:00 Amlodipine Tablet PHA 10/24/25 In Process (Norvasc Tablet) 10:00 Electrocardigram EKG 10/23/25 Logged 21:16 Date of Service: Oct 24, 2025 Billing Provider: SARAHY STEIN MD Common Visit Codes: [id number] INP/OBS CARE(HIGH) SARAHY STEIN MD Oct 24, 2025 10:17
--- NOTE | 2025-10-24 10:21 | DVHDS2 ---
Discharge Summary Date of Admission Oct 23, 2025 at 02:21 Date of Discharge: Oct 24, 2025 Admitting Diagnosis Shortness of breath and generalized weakness Wounds: None Labs/Diagnostic Data: Laboratory Results Test 10/24/25 07:21 10/24/25 06:23 10/23/25 08:02 10/23/25 05:58 White Blood Count 4.8 10^3/uL (4.4-10.8) Red Blood Count 3.69 10^6/uL (4.0-5.20) Hemoglobin 12.2 g/dL (12.2-16.2) Hematocrit 36.5 % (36.0-46.0) Mean Corpuscular Volume 98.9 fL (80.0-100.0) Mean Corpuscular Hemoglobin 33.1 pg (28.0-32.0) Mean Corpuscular Hemoglobin Concent 33.5 g/dL (32.0-36.0) Red Cell Distribution Width 14.2 % (11.8-14.3) Platelet Count 290 10^3/uL (140-450) Mean Platelet Volume 7.6 fL (6.9-10.8) Neutrophils (%) (Auto) 44.2 % (37.0-80.0) Lymphocytes (%) (Auto) 34.9 % (10.0-50.0) Monocytes (%) (Auto) 11.9 % (0.0-12.0) Eosinophils (%) (Auto) 7.7 % (0.0-7.0) Basophils (%) (Auto) 1.3 % (0.0-2.0) Neutrophils # (Auto) 2.1 10 ^3/uL (1.6-8.6) Lymphocytes # (Auto) 1.7 10 ^3/uL (0.4-5.4) Monocytes # (Auto) 0.6 10 ^3/uL (0-1.3) Eosinophils # (Auto) 0.4 10 ^3/uL (0-0.8) Basophils # (Auto) 0.1 10 ^3/uL (0-0.2) Nucleated Red Blood Cells 0.0 % Sodium Level 133 mmol/L (136-145) Potassium Level 5.0 mmol/L (3.5-5.1) Chloride Level 90 mmol/L (98-107) Carbon Dioxide Level 30 mmol/L (20-31) Anion Gap 13 (5-15) Blood Urea Nitrogen 38 mg/dL (9-23) Creatinine 6.84 mg/dL (0.550-1.02) Glomerular Filtration Rate Calc 6 mL/min (>90) BUN/Creatinine Ratio 5.6 (10.0-20.0) Serum Glucose 147 mg/dL (74-106) Calcium Level 9.0 mg/dL (8.7-10.4) Total Bilirubin 0.4 mg/dL (0.2-1.0) Aspartate Amino Transferase (AST) 23 U/L (13-40) Alanine Aminotransferase (ALT) 29 U/L (7-40) Alkaline Phosphatase 136 U/L (46-116) Total Protein 7.7 g/dL (5.7-8.2) Albumin 3.8 g/dL (3.2-4.8) POC Glucose 133 mg/dl (70-106) Troponin I High Sensitivity 51 ng/L (</=34) D-Dimer, Quantitative 0.76 mg/L FEU (0.0-0.49) Test 10/22/25 23:46 Hemoglobin A1c 6.4 % A1C (<5.7) Lactic Acid Level 1.7 mmol/L (0.4-2.0) Ammonia 21 umol/L (11-32) Other Laboratory Tests 10/24/25 07:21 Brief Hx & Hospital Course: 70-year-old female with a history of hypotension diabetes ESRD on hemodialysis came in for shortness of breaths and generalized weakness. All labs were normal except BUN creatinine consistent with a her ESRD no fluid overload seen by Nephrology Dr. Urias advised to discharge the patient she has an appointment 1:00 p.m. for dialysis at [facility] on 10/24/2025 the daughter at the bedside and the patient being discharged Consults/Reason for consult Dr. Urias Operations or Procedures None Condition at Discharge: Fair Final Diagnosis/Problems List End stage renal disease hemodialysis, consult for on air talent Dr. Urias appreciated , advised to discharge the patient, has an appointment for dialysis at [facility] 1:00 p.m. on 10/24/2025 Slightly Elevated troponin probably secondary to ESRD Slightly elevated D-dimer 0.76: DVT ruled out Acute generalized weakness Metabolic encephalopathy Diabetes Hypertension Discharge Disposition: Home Discharge Instruct/Medications Diet: Renal Activity: Light activity Follow Up/Referral: Keep your appointment for dialysis at [facility] 1 PM 12 Sat Resume all previous home medications Follow up with your primary Dr and on air talent Medications: None Scheduled Amlodipine Besylate (Norvasc Tablet), 2 TAB PO DAILY, (Reported) Aspirin (Aspir-81), 1 TAB PO DAILY, (Reported) Atorvastatin Calcium (Atorvastatin Calcium), 1 TAB PO DAILY, (Reported) Calcium Acetate (Calcium Acetate), 667 MG PO TID, (Reported) Cilostazol (Cilostazol), 1 TAB PO BID, (Reported) Docusate Sodium (Colace), 1 CAP PO BID, (Reported) Dulaglutide (Trulicity), 4.5 MG SC UD, (Reported) Gabapentin (Once-Daily) (Gabapentin), 300 MG PO TID, (Reported) Insulin Glargine (Lantus), 30 UNIT SC BID, (Reported) Lisinopril (Lisinopril), 40 MG PO DAILY, (Reported) Sevelamer Carbonate (Renvela), 3 TAB PO TID, (Reported) Tirzepatide (Mounjaro), 7.5 MG SC QWEEKLY, (Reported) Miscellaneous Medications Acetaminophen (Acetaminophen ER 8 Hour), 650 MG PO, (Reported) B-Complex W/ C & Folic Acid (Nephro Vitamins 0.8 mg), 1 TAB PO, (Reported) Carboxymethylcellulose Sodium (Artificial Tears), 1 % OP, (Reported) Cetirizine HCl (Cetirizine HCl), 1 MG PO, (Reported) Levothyroxine Sodium (Levothyroxine Sodium), 50 MCG PO, (Reported) Nitroglycerin (Intra-Anal) (Nitroglycerin), 0.4 % MD, (Reported) Pantoprazole Sodium (Pantoprazole Sodium), 40 MG PO, (Reported) Polyethylene Glycol 3350 (Miralax), 17 GM PO, (Reported) 39 (Time taken for discharge summary 39 minutes) Discharge Statement: "Patient was advised to return to the ER or call 911 if any headaches, dizziness, shortness of breath, chest pain, abdominal pain, bleeding, fevers, or worsening of medical condition. Patient was counseled about treatment plan, medications, possible side effects, patientverbalized understanding. All questions were answered to the best of my ability. This discharge took greater then 30 minutes in planning, reviewing documentation, counseling the patient, and discussing with other team members." ASSESSMENT ASSESSMENT Hospital Course Improved Assessment End stage renal disease hemodialysis, consult for on air talent Dr. Bridgett foster , advised to discharge the patient, has an appointment for dialysis at [facility] 1:00 p.m. on 10/24/2025 Slightly Elevated troponin probably secondary to ESRD Slightly elevated D-dimer 0.76: DVT ruled out Acute generalized weakness Metabolic encephalopathy Diabetes Hypertension Date of Service: Oct 24, 2025 Billing Provider: SARAHY STEIN MD Common Visit Codes: [id number]-XBU/[id number] DISCH DAY >30min SARAHY STEIN MD Oct 24, 2025 10:21
--- NOTE | 2025-10-24 10:37 | ECG ---
[facility] Test Date: 2025-10-23 Test Time: 09:23:06 Pat Name: OPAL HOOVER Department: Room: 0248T B Gender: F Cremator: marshall : 1955 Requested By: SARAHY STEIN Order Number: [id number] Reading MD: Jarek Lowry Measurements Intervals [place] Rate: 54 P: 40 AR: 321 QRS: 114 QRSD: 87 T: 35 QT: 538 QTc: 510 Interpretive Statements Sinus rhythm Supraventricular bigeminy Prolonged AR interval Anterolateral infarct, age indeterminate Electronically Signed On 10-29-2025 18:16:43 PST by Jarek Lowry Please click the below link to view image of tracing.
--- NOTE | 2025-10-24 11:35 | DVHPN2 ---
Progress Note - Dictate Date Seen: Oct 24, 2025 Has the PT tested + for MRSA If YES, has PT been informed?: No Medical Necessity Reason Pt with a Central, PICC or Fol: No Subjective Feels fine No complaints vital signs Vital Sign Date Time Temp Pulse Resp B/P (MAP) Pulse Ox O2 Delivery O2 Flow Rate FiO2 10/24/25 09:00 97.0 49 19 166/82 (110) 100 97.0 10/23/25 20:00 Nasal Cannula* 2 28 Total Intake and Output 10/23/25 10/23/25 10/24/25 15:00 23:00 07:00 Intake Total 475 ml 600 ml Balance 475 ml 600 ml medications Current Medications Medications Dose Ordered Sig/Michelle Route Start Time Stop Time Status Last Admin Dose Admin Multivit/Ca Carb/ B Cmplx/FA/Prenat 1 tab DAILY PO 10/23/25 10:00 10/24/25 10:21 1 TAB Diagnostic Test (Pha) 1 strip ACHS 10/23/25 07:00 10/24/25 06:51 1 STRIP Insulin Human Regular HS SC 10/23/25 22:00 Insulin Human Regular AC SC 10/23/25 07:00 10/23/25 18:18 2 UNITS Dextrose 50 ml UD PRN IV 10/23/25 02:15 Sodium Chloride 1,000 ml @ 60 mls/hr [id number] IV 10/23/25 02:15 Cancel Acetaminophen/ Hydrocodone Bitart 1 tab Q4HP PRN PO 10/23/25 02:15 Ondansetron HCl 4 mg Q4HP PRN IV 10/23/25 02:15 Docusate Sodium 100 mg BIDPRN PRN PO 10/23/25 02:15 Acetaminophen 650 mg Q6HP PRN PO 10/23/25 02:15 Aspirin 81 mg DAILY PO 10/23/25 10:00 10/24/25 10:21 81 MG Nitroglycerin 0.4 mg Q5MINP PRN SL 10/23/25 02:30 Morphine Sulfate 2 mg Q30M PRN IV 10/23/25 02:30 Amlodipine Besylate 10 mg DAILY PO 10/24/25 10:00 Clonidine HCl 0.1 mg Q4HP PRN PO 10/24/25 00:45 objective GENERAL: The patient is an elderly female who appears to be chronically ill, in no acute distress. She is alert and oriented x 3. HEENT: Exam is unremarkable. Oral mucosa is mildly pale and dry. NECK: There is no jugular venous distention. LUNGS: The lungs show diminished air entry at the bases, but no crackles or wheezing. CARDIOVASCULAR: Shows regular rate, 1/6 systolic murmur. ABDOMEN: Soft, nontender. No organomegaly. No ascites. EXTREMITIES: Show no clubbing or cyanosis NEUROLOGIC: Nonfocal. SKIN: Unremarkable. laboratory and microbiology Laboratory Tests 10/24/25 07:21 Test 10/24/25 07:21 Range/Units Serum Glucose 147 H 74-106 mg/dL Problem List ASSESSMENT AND PLAN: 1. End stage renal disease is stable. 2. Controlled hypertension. 3. Hemoglobin of anemia of renal disease at target range. 4. No evidence of congestive heart failure or anemia. The patient has no evidence of fluid overload or pneumonia. Will have HD today DC home after HD Plan discussed with: Patient, Daughter NAKUL CLAIREGARRETT DOMINGO MD Oct 24, 2025 11:35
[2025-10-24] MEDS ORDERED: EPOETIN ALFA-EPBX 4,000 UNIT/ML VIAL SC ONE (21:00)
== END 2025-10-24 11:42 | disposition left against medical advice (07) | DRG 291 ==
LOC: ER 23:26 → EDBD 23:26 → OVERFLOW 10-23 02:21 → TELE-EAST 10-23 05:00
PROVIDERS: ADMIT Family Medicine; ATTEND Family Medicine
DX: I13.2 Hypertensive heart and chronic kidney disease with heart failure and with stage 5 chronic kidney disease, or end stage renal disease (principal); G93.41 Metabolic encephalopathy; N18.6 End stage renal disease; I24.9 Acute ischemic heart disease, unspecified; E11.22 Type 2 diabetes mellitus with diabetic chronic kidney disease; D64.9 Anemia, unspecified; Z99.2 Dependence on renal dialysis; E66.9 Obesity, unspecified; Z53.29 Procedure and treatment not carried out because of patient's decision for other reasons; Z68.36 Body mass index [BMI] 36.0-36.9, adult; E11.51 Type 2 diabetes mellitus with diabetic peripheral angiopathy without gangrene; E21.3 Hyperparathyroidism, unspecified; Z83.3 Family history of diabetes mellitus
CPT/HCPCS: 36415; 80053; 82140; 82962; 83036; 83605; 84484; 85025; 85379; 93005; 93970; G0378; J1815